=== PATIENT | male | born 1980 | race Two or more races ===

== ENCOUNTER 2019-10-11 13:47 | Inpatient (IN) | payer OTHER ==
[~2019-10-11] VITALS: Ht 177.8 cm; Wt 79.0 kg
[2019-10-11] MEDS ORDERED: SODIUM CHLORIDE 0.9% 1,000 ML IVB ONE (14:41)
[2019-10-11] MEDS ORDERED: DOXYCYCLINE 100MG/250ML 250 ML IV ONE (14:45)
[2019-10-11] MEDS ORDERED: ACETAMINOPHEN 325 MG TAB PO ONE (14:45)
[2019-10-11] MEDS ORDERED: AZITHROMYCIN 500MG/ 250ML 250 ML IV ONE (15:00)
[2019-10-11 15:21] LABS: Basophils # (auto) 0 10 ^3/uL (0-0.2); Basophils % (auto) 0.3 % (0.0-2.0); Eosinophils # (auto) 0 10 ^3/uL (0-0.8); Hematocrit 47.9 % (41.0-53.0); Hemoglobin 16.8 g/dL (13.5-17.5); Lymphocytes # (auto) 1.1 10 ^3/uL (0.4-5.4); Lymphocytes % (auto) 18.9 % (10.0-50.0); Mean Corpuscular Hemoglobin 31.8 pg (28.0-32.0); Mean Corpuscular Hgb Conc. 35.1 g/dL (32.0-36.0); Mean Corpuscular Volume 90.6 fL (80.0-100.0); Monocytes # (auto) 0.4 10 ^3/uL (0-1.3); Monocytes % (auto) 6.3 % (0.0-12.0); Neutrophils # (auto) 4.3 10 ^3/uL (1.6-8.6); Neutrophils % (auto) 74.5 % (37.0-80.0); Nucleated Red Blood Cells % 0.1 %; Platelet Count (auto) 145 10^3/uL (140-450); Red Blood Cells 5.29 10^6/uL (4.5-5.90); White Blood Cell 5.7 10^3/uL (4.4-10.8)
[2019-10-11 15:39] LABS: Albumin 3.7 g/dL (3.4-5.0); Magnesium 2.4 mg/dL (1.6-2.6); Potassium 4.2 mmol/L (3.5-5.1)
[2019-10-11 15:41] LABS: INR 1.12 (0.9-1.15); Partial Thromboplastin Time 31.7 sec (23.64-32.05)
[2019-10-11 15:43] LABS: BUN/Creatinine Ratio 6.3; Bilirubin, Total 0.6 mg/dL (0.2-1.0); Total Protein 7.6 g/dL (6.4-8.2)
[2019-10-11] MEDS ORDERED: cefTRIAXone 1GM/50ML D5W 50 ML IV ONE (16:00)
[2019-10-11 16:16] LABS: CRP High Sensitivity 8.57 mg/dL (< 0.3)
[2019-10-11] MEDS ORDERED: DexAMETHasone 4 MG TAB PO ONE (17:00)
[2019-10-11] MEDS ORDERED: SODIUM CHLORIDE 0.9% 1,000 ML IV SCH (17:06)
[2019-10-11] MEDS ORDERED: NITROGLYCERIN 0.4 MG SL TAB SL PRN (17:15)
[2019-10-11] MEDS ORDERED: MORPHINE SULF INJ 2 MG/ML SYRINGE 1ML IV PRN (17:15)
[2019-10-11] MEDS ORDERED: ACETAMINOPHEN 500 MG TAB PO PRN (17:15)
[2019-10-11] MEDS ORDERED: CLON0.5T3 PO (19:12)
[2019-10-11] MEDS ORDERED: IOHEXOL 350 MG/ML 100ML IJ ONE (20:46)
--- NOTE | 2019-10-11 20:50 | NUR ---
COVID POSITIVE CALL FROM LAB. PATIENT IS POSITIVE FOR COVID-19. RESPIRATORY ISOLATION ALREADY IN PLACE.
[2019-10-11 22:00] VITALS: BP 115/67
[2019-10-11] MEDS ORDERED: ALBUTEROL SULF HFA 90MCG INH 200DOSE IN SCH (22:00)
--- NOTE | 2019-10-11 22:00 | NUR ---
SPECIMEN CUP PROVIDED TO PATIENT. INSTRUCTED PATIENT ON NEED FOR URINE SAMPLE, PATIENT VERBALIZED UNDERSTANDING.
[2019-10-11] MEDS: DexAMETHasone 4 MG TAB PO SCH (22:01)
[2019-10-11] MEDS: DOXYCYCLINE 100 MG TAB/CAP PO SCH (22:01)
--- NOTE | 2019-10-11 22:10 | NUR ---
INCENTIVE SPIROMETER PATIENT INSTRUCTED ON PROPER USE OF I.S. DEVICE. ENCOURAGED PATIENT TO PERFORM I.S. EXERCISES AT LEAST 10X/HOUR WHILE AWAKE. PATIENT VERBALIZED UNDERSTANDING. PATIENT SUCCESSFULLY DEMONSTRATED PROPER USE OF I.S. DEVICE.
--- NOTE | 2019-10-11 22:20 | NUR ---
LABS DRAWN AND SENT TO LAB.
[2019-10-11 22:36] LABS: Basophils # (auto) 0 10 ^3/uL (0-0.2); Basophils % (auto) 0.2 % (0.0-2.0); Eosinophils # (auto) 0 10 ^3/uL (0-0.8); Hematocrit 46.5 % (41.0-53.0); Hemoglobin 16.3 g/dL (13.5-17.5); Lymphocytes # (auto) 0.6 10 ^3/uL (0.4-5.4); Lymphocytes % (auto) 11.3 % (10.0-50.0); Mean Corpuscular Hemoglobin 31.9 pg (28.0-32.0); Mean Corpuscular Volume 91.2 fL (80.0-100.0); Monocytes # (auto) 0.2 10 ^3/uL (0-1.3); Monocytes % (auto) 4.7 % (0.0-12.0); Neutrophils # (auto) 4.4 10 ^3/uL (1.6-8.6); Neutrophils % (auto) 83.8 % (37.0-80.0); Nucleated Red Blood Cells % 0.1 %; Platelet Count (auto) 145 10^3/uL (140-450); Red Cell Distribution Width 12.9 % (11.8-14.3); White Blood Cell 5.2 10^3/uL (4.4-10.8)
[2019-10-11] MEDS ORDERED: FUROSEMIDE 20 MG/2 ML VIAL IV ONE (23:00)
[2019-10-11 23:02] LABS: Albumin 3.1 g/dL (3.4-5.0); BUN/Creatinine Ratio 7.3; Bilirubin, Total 0.4 mg/dL (0.2-1.0); Magnesium 2.7 mg/dL (1.6-2.6); Total Protein 7.1 g/dL (6.4-8.2)
[2019-10-11 23:15] LABS: CRP High Sensitivity 8.39 mg/dL (< 0.3)
[2019-10-12 05:00] VITALS: BP 104/70
[2019-10-12] MEDS: FUROSEMIDE 20 MG/2 ML VIAL IV SCH ×2 (05:24→17:15)
[2019-10-12 06:53] LABS: Basophils # (auto) 0 10 ^3/uL (0-0.2); Basophils % (auto) 0.2 % (0.0-2.0); Eosinophils # (auto) 0 10 ^3/uL (0-0.8); Hematocrit 48.8 % (41.0-53.0); Hemoglobin 16.9 g/dL (13.5-17.5); Lymphocytes # (auto) 0.7 10 ^3/uL (0.4-5.4); Lymphocytes % (auto) 18.6 % (10.0-50.0); Mean Corpuscular Hemoglobin 31.9 pg (28.0-32.0); Mean Corpuscular Hgb Conc. 34.6 g/dL (32.0-36.0); Mean Corpuscular Volume 92.1 fL (80.0-100.0); Monocytes # (auto) 0.2 10 ^3/uL (0-1.3); Monocytes % (auto) 5.9 % (0.0-12.0); Neutrophils # (auto) 2.7 10 ^3/uL (1.6-8.6); Neutrophils % (auto) 75.3 % (37.0-80.0); Nucleated Red Blood Cells % 0.2 %; Platelet Count (auto) 161 10^3/uL (140-450); Red Cell Distribution Width 12.8 % (11.8-14.3); White Blood Cell 3.6 10^3/uL (4.4-10.8)
[2019-10-12 07:03] LABS: Urine Bacteria NONE SEEN /hpf (None Seen); Urine Blood Negative /uL (Negative); Urine Specific Gravity 1.008 (1.001-1.035); Urine WBC 2 /hpf (0 - 3)
[2019-10-12 07:14] LABS: Albumin 3.3 g/dL (3.4-5.0); Calcium 8.4 mg/dL (8.5-10.1); Magnesium 2.8 mg/dL (1.6-2.6); Potassium 4.5 mmol/L (3.5-5.1)
[2019-10-12 07:17] LABS: BUN/Creatinine Ratio 8.7; Bilirubin, Total 0.5 mg/dL (0.2-1.0); Phosphorus 2.6 mg/dL (2.5-4.90); Total Protein 7.9 g/dL (6.4-8.2)
[2019-10-12 08:00] VITALS: BP 113/74
[2019-10-12 08:12] LABS: INR 1.08 (0.9-1.15); Partial Thromboplastin Time 30.7 sec (23.64-32.05)
[2019-10-12 09:17] VITALS: BP 113/74
[2019-10-12] MEDS: ZINC SULFATE 220mg CAP or TAB PO SCH (09:42)
[2019-10-12] MEDS: ASCORBIC ACID 1,000 MG TAB PO SCH (09:43)
[2019-10-12] MEDS: DOXYCYCLINE 100 MG TAB/CAP PO SCH ×2 (09:43→22:41)
[2019-10-12] MEDS: DexAMETHasone 4 MG TAB PO SCH ×2 (09:43→22:41)
[2019-10-12] MEDS: ENOXAPARIN SOD 40 MG/0.4 ML SYRINGE SC SCH (09:44)
[2019-10-12] MEDS: CHOLECALCIFEROL (VITD3) 1,000IU=25mCg TAB PO SCH (09:44)
[2019-10-12 13:00] VITALS: BP 127/76
[2019-10-12 16:50] VITALS: BP 120/68
--- NOTE | 2019-10-12 22:55 | NUR ---
Opening Shift Note Assumed care of patient, awake and alert. No S/S of distress/SOB or pain. Safety measures in place bed in lowest position, side rails up x2, and call light within reach. Instructed on POC and to call for assist PRN, will continue to monitor for changes Q1hr and PRN. Addendum: 10/12/19 at 0951 by ILANA CAMPBELL RN RN Time amendment patient seen by Ilana LOPEZ at 1940.
--- NOTE | 2019-10-13 04:43 | NUR ---
Patient called complaining of high anxiety. Patient suffers from PTSD. Patient states "transfer of rooms added to my anxiety". Patient requesting a one time dose of Xanax. Will page hospitalist.
[2019-10-13] MEDS: FUROSEMIDE 20 MG/2 ML VIAL IV SCH ×2 (06:00→06:13)
[2019-10-13 06:05] VITALS: BP 135/85
--- NOTE | 2019-10-13 07:30 | NUR ---
Opening Shift Note Assumed care of patient, awake and alert. No S/S of distress/SOB or pain on room air. Instructed on POC and to call for assist PRN, will continue to monitor for changes Q1hr and PRN. Bed in low and locked position rails up x2, no-slip socks on.
[2019-10-13] MEDS ORDERED: clonazePAM 0.5 MG TAB PO ONE (08:15)
[2019-10-13] MEDS ORDERED: ZINC220T6 PO (08:17)
[2019-10-13] MEDS ORDERED: AZIT500T66 PO (08:17)
[2019-10-13] MEDS ORDERED: CHOL20007 PO (08:17)
[2019-10-13] MEDS ORDERED: ALBUAER3 IN (08:17)
[2019-10-13] MEDS ORDERED: MULT-228 PO (08:17)
[2019-10-13] MEDS ORDERED: ASCO10003 PO (08:17)
[2019-10-13] MEDS ORDERED: DEX4T PO (08:17)
--- NOTE | 2019-10-13 08:20 | NUR ---
CALL FROM DR TORRES UPDATED ON PATIENT STATUS AND PATIENT REQUESTS TO GO HOME, NEW ORDERS ADDED TO BE CARRIED OUT, PATIENT AND DR TORRES SPOKE ON THE PHONE, WILL DISCHARGE.
[2019-10-13] MEDS: DexAMETHasone 4 MG TAB PO SCH (08:39)
[2019-10-13] MEDS: DOXYCYCLINE 100 MG TAB/CAP PO SCH (08:39)
[2019-10-13] MEDS: ZINC SULFATE 220mg CAP or TAB PO SCH (08:40)
[2019-10-13] MEDS: CHOLECALCIFEROL (VITD3) 1,000IU=25mCg TAB PO SCH (08:40)
[2019-10-13] MEDS: ASCORBIC ACID 1,000 MG TAB PO SCH (08:40)
[2019-10-13] MEDS: ENOXAPARIN SOD 40 MG/0.4 ML SYRINGE SC SCH (08:40)
[2019-10-13 08:52] VITALS: BP 130/79
[2019-10-13 09:00] VITALS: BP 130/79
--- NOTE | 2019-10-13 10:15 | NUR ---
DISCHARGE Discharge instructions given as ordered. Encourage to follow up with PMD as instructed. All questions and concerns addressed. Patient verbalized understanding. Medication reconciliation form completed and copy given to patient. IV removed with catheter intact, pressure dressing applied. Telemetry unit returned to ICU. Patient taken to vehicle via wheelchair with all personal belongings, accompanied by staff, security, and housekeeping. No distress noted at time of departure.
== END 2019-10-13 10:15 | disposition home or self-care (01) | DRG 177 ==
LOC: ER 13:47 → EDBD 13:47 → TELE 13:48 → TELE-EAST 18:35 → TELE-E-ADS 10-12 21:47
PROVIDERS: ADMIT Hospitalist; ATTEND Internal Medicine
DX: U07.1 COVID-19 (principal); J12.89 Other viral pneumonia; J96.00 Acute respiratory failure, unspecified whether with hypoxia or hypercapnia; R65.10 Systemic inflammatory response syndrome (SIRS) of non-infectious origin without acute organ dysfunction; F41.9 Anxiety disorder, unspecified; Z88.0 Allergy status to penicillin; Z88.8 Allergy status to other drugs, medicaments and biological substances
CPT/HCPCS: 36415; 71045; 80053; 81001; 82728; 83605; 83615; 83735; 84100; 84443; 85025; 85379; 85610; 85730; 86141; 87040; 87070; 87804; 87880; 93005; 96365; 96366; 96368; G0378; J0696

== ENCOUNTER 2022-09-17 19:18 | Inpatient (IN) | payer OTHER ==
[~2022-09-17] VITALS: Ht 170.2 cm; Wt 77.2 kg
[~2022-09-17 19:18] MED LIST: ALBUAER3 IN; ASCO10003 PO; AZIT500T66 PO; CHOL20007 PO; CLON0.5T3 PO; DEX4T PO; MULT-228 PO; ZINC220T6 PO
[2022-09-17 19:38] LABS: Basophils # (auto) 0.1 10 ^3/uL (0-0.2); Basophils % (auto) 0.7 % (0.0-2.0); Eosinophils # (auto) 0.2 10 ^3/uL (0-0.8); Eosinophils % (auto) 2.5 % (0.0-7.0); Hematocrit 47.7 % (41.0-53.0); Hemoglobin 16.9 g/dL (13.5-17.5); Lymphocytes # (auto) 2.8 10 ^3/uL (0.4-5.4); Lymphocytes % (auto) 40.5 % (10.0-50.0); Mean Corpuscular Hemoglobin 32.3 pg (28.0-32.0); Mean Corpuscular Hgb Conc. 35.5 g/dL (32.0-36.0); Mean Corpuscular Volume 91.1 fL (80.0-100.0); Monocytes # (auto) 0.8 10 ^3/uL (0-1.3); Monocytes % (auto) 12.2 % (0.0-12.0); Neutrophils # (auto) 3.1 10 ^3/uL (1.6-8.6); Neutrophils % (auto) 44.1 % (37.0-80.0); Red Blood Cells 5.24 10^6/uL (4.5-5.90); Red Cell Distribution Width 13.5 % (11.8-14.3); White Blood Cell 6.9 10^3/uL (4.4-10.8)
[2022-09-17 19:56] LABS: Albumin 3.8 g/dL (3.4-5.0); BUN/Creatinine Ratio 21.6 (10.0-20.0); Calcium 9.1 mg/dL (8.5-10.1); Magnesium 2.1 mg/dL (1.6-2.6); Potassium 3.8 mmol/L (3.5-5.1)
[2022-09-17 19:59] LABS: Bilirubin, Total 0.4 mg/dL (0.2-1.0); Total Protein 7.4 g/dL (6.4-8.2)
[2022-09-17] MEDS: LORazepam 2MG/ML-1ML VIAL IM ONE ×2 (23:15→23:56)
[2022-09-17] MEDS ORDERED: HYDROcodone-ACET 5/325MG TAB PO PRN (23:45)
[2022-09-17] MEDS ORDERED: DOCUSATE SOD 100 MG CAP PO PRN (23:45)
[2022-09-17] MEDS ORDERED: IBUPROFEN 600 MG TAB PO PRN (23:45)
[2022-09-17] MEDS ORDERED: NITROGLYCERIN 0.4 MG SL TAB SL PRN (23:45)
[2022-09-17] MEDS ORDERED: MORPHINE SULFATE INJ 2 MG/ml SYRG IV PRN ×2 (23:45)
[2022-09-17] MEDS ORDERED: ONDANSETRON HCL 4 MG/2 ML VIAL IV PRN (23:45)
[2022-09-17] MEDS ORDERED: ASPirin 81 mg TAB PO ONE (23:45)
[2022-09-18] VITALS (7 sets, daily range): BP systolic 103–135; BP diastolic 65–78
[2022-09-18] MEDS ORDERED: HEPARIN DRIP/D5W 100UNITS/ML 250 ML IV SCH (00:30)
[2022-09-18] MEDS ORDERED: HEPARIN SODIUM (PORCINE) 5000 UNITS/ML 1ML VIAL IV ONE (00:30)
[2022-09-18] MEDS: SODIUM CHLORIDE 0.9% 1,000 ML IV SCH ×2 (00:30→17:28)
[2022-09-18 00:45] LABS: Basophils # (auto) 0 10 ^3/uL (0-0.2); Basophils % (auto) 0.5 % (0.0-2.0); Eosinophils # (auto) 0.1 10 ^3/uL (0-0.8); Eosinophils % (auto) 2.1 % (0.0-7.0); Hematocrit 46.4 % (41.0-53.0); Hemoglobin 16.3 g/dL (13.5-17.5); Lymphocytes # (auto) 2.2 10 ^3/uL (0.4-5.4); Lymphocytes % (auto) 34.2 % (10.0-50.0); Mean Corpuscular Hemoglobin 32.1 pg (28.0-32.0); Mean Corpuscular Hgb Conc. 35.1 g/dL (32.0-36.0); Mean Corpuscular Volume 91.4 fL (80.0-100.0); Monocytes # (auto) 0.6 10 ^3/uL (0-1.3); Monocytes % (auto) 10.1 % (0.0-12.0); Neutrophils # (auto) 3.4 10 ^3/uL (1.6-8.6); Neutrophils % (auto) 53.1 % (37.0-80.0); Nucleated Red Blood Cells % 0.1 %; Red Blood Cells 5.08 10^6/uL (4.5-5.90); Red Cell Distribution Width 13.5 % (11.8-14.3); White Blood Cell 6.3 10^3/uL (4.4-10.8)
[2022-09-18 01:03] LABS: INR 1.06 (0.9-1.15); Partial Thromboplastin Time 30.2 sec (24.6-33.4)
[2022-09-18 06:32] LABS: Basophils # (auto) 0 10 ^3/uL (0-0.2); Basophils % (auto) 0.7 % (0.0-2.0); Eosinophils # (auto) 0.2 10 ^3/uL (0-0.8); Eosinophils % (auto) 2.4 % (0.0-7.0); Hematocrit 45.9 % (41.0-53.0); Hemoglobin 16.4 g/dL (13.5-17.5); Lymphocytes # (auto) 2.1 10 ^3/uL (0.4-5.4); Lymphocytes % (auto) 32.4 % (10.0-50.0); Mean Corpuscular Hemoglobin 32.5 pg (28.0-32.0); Mean Corpuscular Hgb Conc. 35.7 g/dL (32.0-36.0); Mean Corpuscular Volume 91.1 fL (80.0-100.0); Monocytes # (auto) 0.7 10 ^3/uL (0-1.3); Monocytes % (auto) 10.7 % (0.0-12.0); Neutrophils # (auto) 3.5 10 ^3/uL (1.6-8.6); Neutrophils % (auto) 53.8 % (37.0-80.0); Nucleated Red Blood Cells % 0.1 %; Red Blood Cells 5.04 10^6/uL (4.5-5.90); Red Cell Distribution Width 13.8 % (11.8-14.3); White Blood Cell 6.5 10^3/uL (4.4-10.8)
[2022-09-18 06:38] LABS: INR 1.06 (0.9-1.15); Partial Thromboplastin Time 52.8 sec (24.6-33.4)
[2022-09-18 06:40] LABS: Potassium 4.1 mmol/L (3.5-5.1)
[2022-09-18 06:51] LABS: Albumin 3.9 g/dL (3.4-5.0); BUN/Creatinine Ratio 17.8 (10.0-20.0); Bilirubin, Total 0.4 mg/dL (0.2-1.0); Total Protein 6.6 g/dL (6.4-8.2)
[2022-09-18] MEDS: LORazepam 2MG/ML-1ML VIAL IM ONE (09:46)
[2022-09-18] MEDS: ASPirin 81 mg TAB PO SCH (09:46)
[2022-09-18 10:08] LABS: INR 1.07 (0.9-1.15); Partial Thromboplastin Time 41.5 sec (24.6-33.4)
[2022-09-18] MEDS ORDERED: ANGIOMAX 250 MG VIAL IV ONE (14:37)
[2022-09-18] MEDS ORDERED: HEPARIN SODIUM (PORCINE) 5000 UNITS/ML 1ML VIAL ONE (14:37)
[2022-09-18] MEDS ORDERED: VERAPAMIL 2.5MG/ML INJ 2ML VIAL IV ONE (14:37)
[2022-09-18] MEDS ORDERED: SODIUM CHL 0.9% 50 ML ONE (14:38)
[2022-09-18] MEDS ORDERED: fentaNYL CITRATE 100 MCG/2 ML VL ONE (14:38)
[2022-09-18] MEDS ORDERED: MIDAZOLAM HCL 2MG/2ML 2ml VIAL (1mg/ml) ONE (14:38)
[2022-09-18] MEDS ORDERED: IOHEXOL 350 MG/ML 500ML BOTTLE IJ ONE (14:45)
[2022-09-18] MEDS ORDERED: LIDOCAINE 2%HCL (LOCAL ANESTH.) INJ 20ML MDV ONE (14:45)
[2022-09-18] MEDS ORDERED: TICAGRELOR 90 MG TAB ONE (15:17)
[2022-09-18] MEDS ORDERED: ATORVASTATIN 20 MG TAB PO SCH (22:00)
[2022-09-18] MEDS: METOPROLOL TARTRATE 25 MG TAB PO SCH (22:57)
[2022-09-18] MEDS: TICAGRELOR 90 MG TAB PO SCH (22:57)
[2022-09-19 05:00] VITALS: BP 99/55
[2022-09-19 09:00] VITALS: BP 109/52
[2022-09-19] MEDS: ASPirin 81 mg TAB PO SCH (09:11)
[2022-09-19] MEDS: TICAGRELOR 90 MG TAB PO SCH (09:11)
[2022-09-19] MEDS: SODIUM CHLORIDE 0.9% 1,000 ML IV SCH (09:12)
[2022-09-19] MEDS: METOPROLOL TARTRATE 25 MG TAB PO SCH (10:00)
[2022-09-19 13:00] VITALS: BP 106/41
[2022-09-19] MEDS ORDERED: ATO40T PO (13:15)
[2022-09-19] MEDS ORDERED: ASPI-325 PO (13:15)
[2022-09-19] MEDS ORDERED: NITR0.4S29 SL (13:15)
[2022-09-19] MEDS ORDERED: MET25T PO (13:15)
[2022-09-19] MEDS ORDERED: TICA90TA PO (13:15)
[2022-09-19 14:41] VITALS: BP 106/41
[2022-09-19 17:00] VITALS: BP 114/60
== END 2022-09-19 18:45 | disposition home or self-care (01) | DRG 247 ==
LOC: ER 19:23 → TELE 23:50 → TELE-WESTW 09-18 13:38
PROVIDERS: ADMIT Nurse Practitioner Family; ATTEND Internal Medicine
PROC: 4A023N7 Measurement of Cardiac Sampling and Pressure, Left Heart, Percutaneous Approach (ICD-10-PCS; principal; 2022-09-18)
PROC: 027044Z Dilation of Coronary Artery, One Artery with Drug-eluting Intraluminal Device, Percutaneous Endoscopic Approach (ICD-10-PCS; 2022-09-18)
PROC: B2111ZZ Fluoroscopy of Multiple Coronary Arteries using Low Osmolar Contrast (ICD-10-PCS; 2022-09-18)
DX: I21.4 Non-ST elevation (NSTEMI) myocardial infarction (principal); I25.10 Atherosclerotic heart disease of native coronary artery without angina pectoris; I10 Essential (primary) hypertension; R79.89 Other specified abnormal findings of blood chemistry; E78.5 Hyperlipidemia, unspecified; Z88.0 Allergy status to penicillin; Z79.899 Other long term (current) drug therapy
CPT/HCPCS: 36415; 71045; 76937; 80053; 83735; 83880; 84484; 85025; 85610; 85730; 86850; 86900; 86901; 92941; 93005; 93306; 93458; 96365; 96375; 99152; 99153; G0378; J2250; J2405